=== PATIENT | female | born 1980 | race Two or more races ===

== ENCOUNTER 2024-10-12 18:40 | Emergency (ER) | payer OTHER, SELFPAY ==
--- OUTSIDE RECORDS SUMMARY | 2024-10-12 18:54 | XMS_ITS | Clinical Summary ---
Author Organization [facility] Healthcare Address [address] [place] [address] Care Team Providers Care Channel Cementer Name Role Phone [facility] Primary Care Provide r Azael Nur MD Unavailable [phone] Allergies Active Allergy Reactions Criticality Noted Date Comments Codeine Rash Low 05/09/2018 Other Reaction(s): Not available Latex Swelling 08/17/2023 Medications escitalopram (Lexapro) 10 MG tablet Active Methotrexate Sodium (methotrexate PF) 50 MG/2ML syringe 024 Active Xeljanz XR 11 MG tablet sustained-release 24 hour Active metroNIDAZOLE (Metrogel) 0.75 % gelIndications:Ot her rosacea Apply thin layer to face, once daily, 30 day supply 45 g 11 024 Active apremilast (Otezla) 10 & 20 & 30 MG tablet therapy pack tablet therapy pack 025 Active apremilast (Otezla) 30 MG tablet 025 Active ARIPiprazole (Abilify) 5 MG tablet Take 1 tablet by mouth Daily Active cyclobenzaprine (Flexeril) 10 MG tablet 024 Active hydroxychloroquin e (Plaquenil) 200 MG tablet Take 1 tablet by mouth Daily Active hydrOXYzine HCl (Atarax) 50 MG tablet every 6 (six) hours Active BD Insulin Syringe U/F 31G X 5/16 1 ML misc 024 Active ondansetron (Zofran) 8 MG tablet Take 8 mg by mouth every 8 (eight) hours if needed for nausea Active PARoxetine (Paxil) 20 MG tablet Take 20 mg by mouth in the morning. Active topiramate (Topamax) 25 MG tablet Active doxycycline (Monodox) 100 MG capsuleIndication s:Other rosacea Take 1 capsule, by mouth, once daily, 30 days 30 capsule 11 Active Additional Information Patient not taking.Reported on 09/19/2024 tretinoin (Retin-A) 0.025 % creamIndications: Acne vulgaris APPLY THIN LAYER (1 G)TO THE FACE ONCE DAILY IN THE EVENING/AT NIGHT TIME FOR 30 DAYS 45 g 11 Active Maxalt-CORNER FORMER [address] under the tongue Active busPIRone (Buspar) 5 MG tablet Take 1 tablet twice a day by oral route. 2024 Discontinued busPIRone (Buspar) 10 MG tablet Take 10 mg by mouth in the morning and 10 mg before bedtime. 2024 Discontinued lamoTRIgine (LaMICtal) 100 MG tablet Take 1 tablet by mouth Daily 2024 Discontinued QUEtiapine (SEROquel) 300 MG tablet Daily 2024 Discontinued Hospital, Clinic, or Other Facility Administered Medication Ordered Dose Route Frequency Start Date End Date Status betamethasone acetate-betamethasone sodium phosphate (Celestone) injection 6 mgIndications:Primary osteoarthritis of right wrist 6 mg IX Once PRN Procedure 09/19/2024 5 Ended betamethasone acetate-betamethasone sodium phosphate (Celestone) injection 3 mgIndications:Sprain of metacarpophalangeal (MCP) joint of right index finger, initial encounter 3 mg IX Once PRN Procedure 09/19/2024 5 Ended Active Problems No known active problems Encounters Date Type Department Care Team Description 09/19/2024 8:05 AM EDT Ancillary Procedure [facility] [address] [place] [address] 09/19/2024 8:00 AM EDT Ancillary Procedure [facility] [address] [phone] 09/19/2024 8:00 AM EDT Office Visit [facility] [address] [place] [address] Catrachtio Zavaleta PA Sprain of metacarpophalangeal (MCP) joint of right index finger, initial encounter (Primary Dx); Right wrist pain; Right elbow pain; Primary osteoarthritis of right wrist 09/19/2024 Travel from Last 3 Months Family History Medical History Relation Name Comments Cancer Father Lily Cancer Maternal Grandmother Mini Diabetes Mother's Brother Long Cancer Mother's Sister Ela Cancer Paternal Grandfather Pops Relation Name Status Comments Father Lily Alive Maternal Grandmother Mini Alive Mother's Brother Long Alive Mother's Sister Ela Alive Paternal Grandfather Pops Alive Social History Tobacco Use Types Packs/Day Years Used Date Smoking Tobacco: Unknown Tobacco Cessation:Counseling Given: Not Answered Comments Unknown Sex and Gender Information Value Date Recorded Sex Assigned at Female 08/16/2023 2:38 PM EDT Legal Sex Female 11:22 PM EDT Gender Identity Female 08/16/2023 2:38 PM EDT Sexual Orientation Not on file Last Filed Vital Signs Vital Sign Reading Time Taken Comments Blood Pressure 124/72 08/17/2023 1:27 PM EDT Pulse 70 08/17/2023 1:27 PM EDT Temperature - - Respiratory Rate - - Oxygen Saturation - - Inhaled Oxygen Concentration - - Weight 75.8 kg (167 lb) 09/19/2024 8:19 AM EDT Height 170.2 cm (5' 7 ) 09/19/2024 8:19 AM EDT Body Mass Index 26.16 09/19/2024 8:19 AM EDT Plan of Treatment Health Maintenance Due Date Last Done Comments Pap Smear 11/23/2000 Mammogram 03/12/2024 03/12/2023, 11/08/2020 Influenza Vaccine (Season Ended) 2025 04/05/20 15 Cervical Cancer Screening 08/13/2027 HPV/Cotest 08/13/2027 08/12/2022 Procedures Procedure Name Priority Date/Time Associated Diagnosis Comments [place] ARTHROCNT ASPIR&/INJ SMALL JT/EMILIAAW/US REC RPRT Routine 09/19/2024 9:02 AM EDT Sprain of metacarpophalangeal (MCP) joint of right index finger, initial encounter [place] ARTHROCENTESIS ASPIR&/INJ INTERM JT/BURS W/US Routine 09/19/2024 9:00 AM EDT Primary osteoarthritis of right wrist XR ELBOW 3+ VIEWS RIGHT Routine 09/19/2024 7:49 AM EDT Right elbow pain XR WRIST 3+ VIEWS RIGHT Routine 09/19/2024 7:49 AM EDT Right wrist pain from Last 3 Months Results * [place] ARTHROCNT ASPIR&/INJ SMALL JT/BURSAW/US REC RPRT (09/19/2024 9:02 AM EDT) Stephy Valle MA - 09/19/2024 9:02 AM EDT Stephy Whaley MA 09/19/2024 12:37 PM S Inj/Asp: R index MCP on 09/19/2024 9:02 AM Indications: pain Details: 25 G needle, ultrasound-guided Medications: 3 mg betamethasone acetate-betamethasone sodium phosphate 6 (3-3) MG/ML Procedure, treatment alternatives, risks and benefits explained, specific risks discussed. Consent was given by the patient. Immediately prior to procedure a time out was called to verify the correct patient, procedure, equipment, operations support analyst and site/side marked as required. Patient was prepped and draped in the usual sterile fashion. us Catrachito DE [facility]ZMAN IN CLINIC/BEDSIDE ORDERABLES Fin al Result * [place] ARTHROCENTESIS ASPIR&/INJ INTERM JT/BURS W/US (09/19/2024 9:00 AM EDT) Stephy Valle MA - 09/19/2024 9:00 AM EDT Stephy Whlaey MA 09/19/2024 12:37 PM M Inj/Asp: R radiocarpal on 09/19/2024 9:00 AM Indications: pain Details: 25 G needle, ultrasound-guided anterolateral approach Medications: 6 mg betamethasone acetate-betamethasone sodium phosphate 6 (3-3) MG/ML Procedure, treatment alternatives, risks and benefits explained, specific risks discussed. Consent was given by the patient. Immediately prior to procedure a time out was called to verify the correct patient, procedure, equipment, operations support analyst and site/side marked as required. Patient was prepped and draped in the usual sterile fashion. us Catrachito DE GUZMAN IN CLINIC/BEDSIDE ORDERABLES Fin al Result * XR elbow 3+ views right (09/19/2024 7:49 AM EDT) Anatomical Region Laterality Modality Upper Extremities, Elbow Right Radiogr aphic Imaging Narrative 09/19/2024 8:54 AM EDT Imaging Result: AP lateral oblique of the right elbow taken in the office today does not demonstrate any acute fracture evidence of significant osteoarthritis no evidence of bony tumor. us Catrachito DE GUZMAN IMG XR PROCEDURES Final Result * XR wrist 3+ views right (09/19/2024 7:49 AM EDT) Anatomical Region Laterality Modality Upper Extremities, Wrist Right Radiogr aphic Imaging Narrative 09/19/2024 8:53 AM EDT Imaging Result: AP lateral oblique of the right wrist taken in the office today does demonstrate some arthritic changes in the TTS to the distal scaphoid region but no apparent MCP deterioration or osteoarthritis seen. Early CMC degenerative changes with no significant subluxation. No evidence of fracture bony tumor seen. us Catrachito DE GUZMAN IMG XR PROCEDURES Final Result from Last 3 Months Insurance [facility] [place] Care Teams Channel Cementer Relationship Specialty [place] [address] [place] [address] [place] [address] PCP - General Behavioral Health 09/10/23 Azael Nur MD [address] [place] [id number] Referring Physician Family Medicine 09/19/24
--- OUTSIDE RECORDS SUMMARY | 2024-10-12 18:54 | XMS_ITS | Clinical Summary ---
Author Organization [facility] Address [address] [place] [address] Care Team Providers Care Engraver Hand Soft Metals Name Role Phone Praful Baker MD Unavailable [phone] None, Provided MD Primary Care Provider Unavaila ble Allergies Active Allergy Reactions Criticality Noted Date Comments Codeine Rash Low 05/09/2018 Latex Swelling 08/17/2023 Medications Medication Sig Dispensed Refills Start Date End Date Status sertraline (Zoloft) 50 mg tablet Take 50 mg by mouth in the morning. 01/22/2022 Active lamoTRIgine (LaMICtal) 100 mg tablet TAKE 1 TABLET BY MOUTH EVERY DAY IN THE MORNING 01/22/2022 Active hydrOXYzine pamoate (Vistaril) 50 mg capsule TAKE 1 CAPSULE BY MOUTH EVERY 12 HOURS NEEDED 10/06/2021 Active dexAMETHasone (Decadron) 4 mg tablet TAKE 1 TABLET(4MG) BY ORAL ROUTE DAILY 12/07/2021 Active busPIRone (Buspar) 10 mg tablet TAKE 1 TABLET ORALLY TWICE A DAY UPON AWAKING AND 5-6 PM. 30 10/06/2021 Active ARIPiprazole (Abilify) 5 mg tablet TAKE 1 TABLET BY MOUTH EVERYDAY AT BEDTIME 06/22/2022 Active cetirizine (ZyrTEC) 10 mg tablet 10 mg 1 (one) time each day. 06/22/2022 Active Flowflex COVID-19 Ag Home Test kit REFER TO CONCRETE STONE FINISHER INSTRUCTIONS INCLUDED IN PACKAGING 06/22/2022 Active metroNIDAZOLE (Flagyl) 500 mg tablet TAKE 1 TABLET BY MOUTH TWICE DAILY FOR 7 DAYS (MORNING AND BEFORE BEDTIME) NO ALCOHOL WHILE TAKING THIS MED 08/13/2022 Active valACYclovir (Valtrex) 1 gram tablet TAKE 1/2 (ONE-HALF) TABLET BY MOUTH TWICE DAILY FOR 10 DAYS (MORNING AND BEFORE BEDTIME) 08/12/2022 Active hydrOXYzine HCL (Atarax) 50 mg tablet every 6 (six) hours. Active ketorolac (Acular) 0.5 % ophthalmic solution INSTILL 1 DROP INTO LEFT EYE EVERY 3 HOURS 10/18/2022 Active QUEtiapine (SEROquel) 300 mg tablet in the morning. Active methotrexate (MTX) 25 mg/mLIndications:Ar thropathic psoriasis, unspecified (CMS/HCC) INJECT 0.5 ML ONCE WEEKLY DIRECTED 2 mL 3 11/04/2022 Active methotrexate 25 mg/mL injectionIndication s:Psoriatic arthropathy (CMS/HCC) Inject 0.5 mL (12.5 mg) into the shoulder, thigh, or buttocks 1 (one) time per week. 2 mL 6 07/08/2023 Active folic acid (Folvite) 1 mg tabletIndications:P soriatic arthropathy (CMS/HCC),assisted methotrexate user Take 1 tablet (1,000 mcg) by mouth in the morning. 90 tablet 3 08/17/2023 Active insulin syringe-needle U-100 (BD Insulin Syringe) 1 mL 27 gauge x 1/2 syringeIndications: Psoriatic arthropathy (CMS/HCC),oil heaterman methotrexate user 1 mL 1 (one) time per week. For Methotrexate subcutaneous administration. 60 each 3 08/17/2023 Active tofacitinib ER (Xeljanz XR) 11 mg tablet extended release 24 hrIndications:Arthr opathic psoriasis, unspecified (CMS/HCC) Take 1 tablet (11 mg) by mouth in the morning. Do not crush, chew or split. Swallow whole. 30 tablet 11 12/28/2023 Active Additional Information Patient not taking.Reported on 06/19/2024 cyclobenzaprine (Flexeril) 10 mg tablet TAKE 1 TABLET BY MOUTH EVERY 12 HOURS NEEDED FOR MUSCLE SPASM 10/18/2023 Active ondansetron (Zofran) 8 mg tabletIndications:N ausea Take one tab PO every 8 hours as needed for nausea 90 tablet 3 06/19/2024 Active apremilast (Otezla Starter) 10 mg (4)-20 mg (4)-30 mg (47) tablets,dose pack tablet therapy packIndications:Pso riatic arthropathy (CMS/HCC) Take as directed 55 each 06/20/2024 Active apremilast (Otezla) 30 mg tabletIndications:P soriatic arthropathy (CMS/HCC) One tab PO twice daily 60 tablet 11 06/20/2024 Active Active Problems Problem Noted Date Diagnosed Date oil heaterman methotrexate user 08/18/2023 Acute pain of right wrist 08/18/2023 Psoriatic arthropathy 07/09/2023 Hyperlipidemia 07/09/2023 High risk medication use 07/09/2023 Encounter for screening for other viral diseases 07/09/2023 Screening-pulmonary TB 07/09/2023 Sacrococcygeal disorders, not elsewhere classifi ed 10/01/2022 Trochanteric bursitis of right hip 10/01/2022 Allergic rhinitis 09/14/2022 Amenorrhea 09/14/2022 Gastro-esophageal reflux disease with esophagiti s 09/14/2022 Irregular periods 09/14/2022 Joint pain 09/14/2022 Nausea and vomiting 09/14/2022 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 Family History Medical History Relation Name Comments Anxiety disorder Father Dad Cancer Father Dad Depression Father Dad Heart disease Father Dad Hyperlipidemia Father Dad Hypertension Father Dad Kidney disease Father Dad Stroke Father Dad Alcohol abuse Maternal Grandfather Pops Cancer Maternal Grandfather Pops Cancer Maternal Grandmother Moms Kidney disease Maternal Grandmother Moms Diabetes Mother's Brother 1 Long Mental illness Mother's Brother 2 Bry Learning disabilities Mother's Sister Ela Heart disease Paternal Grandfather Chris Stroke Paternal Grandfather Chris Stroke Paternal Grandmother Cesar Intellectual Disability Sister Micah Intellectual Disability Son Pedro Pablo Relation Name Status Comments Father Dad Maternal Grandfather Pops Maternal Grandmother Moms Mother's Brother 1 Long Mother's Brother 2 Bry Mother's Sister Ela Paternal Grandfather Chris Paternal Grandmother Cesar Sister Micah Son Pedro Pablo Social History Tobacco Use Types Packs/Day Years Used Date Smoking Tobacco: Never Smokeless Tobacco: Never Tobacco Cessation:Counseling Given: Not Answered Alcohol Use Standard Drinks/Week Comments Yes 0 (1 standard drink = 0.6 oz pur e alcohol) PHQ-2 Answer Date Recorded Patient Health Questionnaire-2 Score 0 06/19/2024 [place] Safety & Environment Answer Date Rec orded Fear of Current or Ex-Partner Not on file Emotionally Abused Not on file 07/15/2023 Physically Abused Not on file 07/15/2023 Sexually Abused Not on file 07/15/2023 Physically or Sexually Abused Not on file Sex and Gender Information Value Date Recorded Sex Assigned at Not on file Gender Identity Not on file Sexual Orientation Not on file Last Filed Vital Signs Vital Sign Reading Time Taken Comments Blood Pressure 112/77 06/19/2024 10:47 AM EST Pulse 78 06/19/2024 10:47 AM EST Temperature - - Respiratory Rate 14 10/01/2022 10:18 AM EDT Oxygen Saturation 100% 10/01/2022 10:18 AM EDT Inhaled Oxygen Concentration - - Weight 88 kg (194 lb) 06/19/2024 10:47 AM EST Height 170.2 cm (5' 7 ) 06/19/2024 10:47 AM EST Body Mass Index 30.38 06/19/2024 10:47 AM EST Plan of Treatment Health Maintenance Due Date Last Done Comments Pap Smear 11/23/2000 Cervical Cancer Screening 11/23/2009 HPV/Cotest 11/23/2009 Hepatitis B Vaccines (2 of 3 - 19+ 3-dose series) 07/28/2018 06/30/2018 COVID-19 Vaccine ( - 2023-2 5 season) 2024 Influenza Vaccine (Season Ended) 2025 04/05/20 15 Mammogram 03/12/2025 03/12/2023 Depression Screening 06/19/2025 06/19/2024 Adult Tetanus 09/15/2025 09/16/2015 Zoster Vaccines (1 of 2) 11/23/2029 HIB Vaccines Aged Out No longer eligi ble based on patient's age to complete this topic HPV Vaccines Aged Out No longer eligi ble based on patient's age to complete this topic IPV Vaccines Aged Out No longer eligi ble based on patient's age to complete this topic Meningococcal B Vaccine Aged Out No l onger eligible based on patient's age to complete this topic Meningococcal Vaccine Aged Out No micah landen eligible based on patient's age to complete this topic Pneumococcal Vaccine: Pediat rics (0 to 5 Years) and At-Risk Patients (6 to 64 Years) Aged Out No longer eligi ble based on patient's age to complete this topic Rotavirus Vaccines Aged Out No longer eligible based on patient's age to complete this topic Care Teams Engraver Hand Soft Metals Relationship Specialty Start Date End Date None, Provided, PCP - General 10/01/22 Praful Baker MD [address] [place] [id number] Referring Physician Rheumatology 10/01/22 Naren Sharpe Primary Care Provider Internal Medicine 10/01/22
--- OUTSIDE RECORDS SUMMARY | 2024-10-12 18:54 | XMS_ITS | Encounter Summary ---
Author Organization [facility] Address [address] [place] [address] Care Team Providers Care Cigarette Packer Name Role Phone Praful Baker MD Unavailable [phone] None, Provided MD Primary Care Provider Unavaila ble Reason for Visit * Reason Comments Med Change Request Encounter Details Date Type Department Care Team (Late st Contact Info) Description 11/03/2022 Refill [facility] Rheumatology [address] [place] [address] Randy Urbano MD [address] [place] [address] Arthropathic psoriasis, unspecified (CMS/HCC) Social History Tobacco Use Types Packs/Day Years Used Date Smoking Tobacco: Never Smokeless Tobacco: Never Alcohol Use Standard Drinks/Week Comments Yes 0 (1 standard drink = 0.6 oz pur e alcohol) PHQ-2 Answer Date Recorded Patient Health Questionnaire-2 Score 0 10/26/2022 Sex and Gender Information Value Date Recorded Sex Assigned at Not on file Gender Identity Not on file Sexual Orientation Not on file COVID-19 Exposure Response Date Recorded In the last 10 days, have yo u been in contact with someone who was confirmed or suspected to have Coronavirus/COVID-19? No / Unsure 10/26/2022 1:25 PM EDT documented as of this encounter Miscellaneous Notes * Telephone Encounter - Ivana Gan MA - 11/03/2022 12:33 PM EDT [facility] patient documented in this encounter Plan of Treatment Not on file documented as of this encounter Visit Diagnoses Diagnosis Arthropathic psoriasis, unspecified (CMS/HCC) documented in this encounter Care Teams Cigarette Packer Relationship Specialty Start Date End Date None, Provided, MD PCP - General 10/01/22 Praful Baker MD [address] [place] [id number] Referring Physician Rheumatology 10/01/22 Naren Sharpe Primary Care Provider Internal Medicine 10/01/22 documented as of this encounter
--- OUTSIDE RECORDS SUMMARY | 2024-10-12 18:54 | XMS_ITS | Encounter Summary ---
Author Organization [facility] Address [address] [place] [address] Care Team Providers Care Hospitality Specialist Name Role Phone Praful Baker MD Unavailable [phone] None, Provided Primary Care Provider Unavaila ble Reason for Visit * Reason Comments Med Change Request Encounter Details Date Type Department Care Team (Late st Contact Info) Description 10/30/2022 Refill [facility] Rheumatology [address] [place] [address] Randy Urbano MD [address] [place] [address] Arthropathic psoriasis, unspecified (CMS/HCC) Social [...] PM EDT documented as of this encounter Plan of Treatment Not on file documented as of this encounter Visit Diagnoses Diagnosis Arthropathic psoriasis, unspecified (CMS/HCC) documented in this encounter Care Teams Hospitality Specialist Relationship Specialty Start Date End Date None, MD Graciela PCP - General 10/01/22 Praful Baker MD [address] [place] [phone] Referring Physician Rheumatology 10/01/22 Naren Sharpe Primary Care Provider Internal Medicine 10/01/22 documented as of this encounter
--- OUTSIDE RECORDS SUMMARY | 2024-10-12 18:54 | XMS_ITS | Referral Summary ---
Author Organization [facility] Address [address] [place] [address] Care Team Providers Care Ammonium Sulfate Operator Name Role Phone Praful Baker MD Unavailable [phone] None, Provided MD Primary Care Provider Unavaila [...] COVID-19 Ag Home Test kit REFER TO FORGE HAND INSTRUCTIONS INCLUDED IN PACKAGING 06/22/2022 Active metroNIDAZOLE [...] acid (Folvite) 1 mg tabletIndications:P soriatic arthropathy (CMS/HCC),residential methotrexate user Take 1 tablet (1,000 mcg) by mouth in the morning. 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 Social History Tobacco Use Types Packs/Day Years Used Date Smoking Tobacco: Never Smokeless Tobacco: Never Tobacco Cessation:Counseling Given: Not Answered Alcohol Use Standard Drinks/Week Comments Yes 0 (1 standard drink = 0.6 oz pur e alcohol) PHQ-2 Answer Date Recorded Patient Health Questionnaire-2 Score 0 06/19/2024 [place] Safety & Environment Answer Date Rec orded [...] 06/19/2024 10:47 AM EST Plan of Treatment Not on file Care Teams Ammonium Sulfate Operator Relationship Specialty Start Date End Date None, Provided, PCP - General 10/01/22 Praful Baker MD [address] [place] [address] Referring Physician Rheumatology 10/01/22 Naren Sharpe Primary Care Provider Internal Medicine 10/01/22
[2024-10-12 18:59] VITALS: BP 119/87; PULSE 77; TEMP 36.6; O2SAT 98; BMI 25.1
[2024-10-12 19:09] LABS: Glucometer 90 mg/dL (74-106)
--- NOTE | 2024-10-12 19:12 | US_ITS ---
[facility] [place] [id number] Patient Name: DAVEY GOTTLIEB MRN: [id number] date: 1980 Sex: F Assigned Patient Location: ER Current Patient Location: ER Accession/Order Number: [id number] Exam Date: 10/12/2024 20:32 Report Date: 10/12/2024 20:33 At the request of: RADHA VERMA MD Procedure: US venous doppler LE LT Venous Doppler ultrasound of the left lower extremity HISTORY: Left lower extremity swelling for 4 days No DVT seen. Normal compressibility. Normal venous waveform. US/US venous doppler LE LT IMPRESSION: No DVT of the left lower extremity. Impression dictated by: Will Husain M.D. 10/12/2024 8:33 PM Dictation Location: [place] [address] Electronically authenticated by: [id number] Y Date: 10/12/2024 20:33
--- NOTE | 2024-10-12 21:36 | ED.EXTPRO1 ---
HPI - Extremity Problem General Chief complaint: Extremity Problem, Nontraumatic Stated complaint: Lower Pain Time Seen by Provider: 10/12/24 21:31 Source: patient Mode of arrival: walk-in Limitations: no limitations History of Present Illness HPI Narrative: This 43-year-old female with a history of rheumatoid arthritis presents for evaluation of left anterior leg pain. She has pain and burning sensation in the left anterior lower leg. She denies any injury. The pain started on Wednesday. She has no numbness or tingling. She has not taken any medication for her symptoms. She denies any chest pain or shortness of breath. She does not smoke. She is not on control. She is concerned that she may have a blood clot in her leg. Related Data Home Medications ?Medication ?Instructions ?Recorded ?Confirmed cyclobenzaprine 10 mg tablet 10 mg PO Q8H PRN muscle spasm 10/12/24 10/12/24 rizatriptan 10 mg disintegrating 10 mg PO Q2H PRN migraine headache 10/12/24 10/12/24 tablet Allergies Allergy/AdvReac Type Severity Reaction Status Date / Time codeine Allergy Rash Verified 10/12/24 18:56 Review of Systems ROS Status of ROS 10 or more systems reviewed and unremarkable except as noted in history and below [facility] Medical History (Updated 10/12/24 @ 21:39 by Ania Chance MD) Rheumatoid arthritis in remission ?M06.9 - Rheumatoid arthritis, unspecified (ICD-10) Social History Little interest or pleasure in doing things: not at all Feeling down, depressed, or hopeless: not at all Exam Narrative Exam Narrative: Vital signs and Nursing Notes reviewed: Patient is afebrile with a normal pulse, blood pressure is elevated 119/87, she is not hypoxic with pulse ox of 98% on room air General: Awake, alert, oriented, no acute distress, lying comfortably on the stretcher HEENT: Normocephalic atraumatic, mucous membranes are moist and pink, eyes are clear, normal conjunctiva, vision is grossly intact Chest: Lungs are clear to auscultation with good air entry, there is no wheezing rhonchi or rales appreciated no accessory muscle use, patient is speaking in complete sentences-no chest wall tenderness to palpation CVS: Regular rate and rhythm S1-S2, no murmurs rubs or gallops, pulses are brisk and equal bilaterally Extremities: Moving all extremities, mild tenderness to the anterior lower tibial area of the left leg. There is no redness bruising or other notable abnormality. There is no calf tenderness or swelling. Foot is warm and sensate with normal pulses Skin: Normal in appearance without rash,pallor, petechiae or purpura Neuro: No focal deficits Constitutional Vital Signs, click to edit/add: Last Vital Signs Temp 97.8 F 10/12/24 18:59 Pulse 77 10/12/24 18:59 Resp 16 10/12/24 18:59 BP 119/87 10/12/24 18:59 Pulse Ox 98 10/12/24 18:59 O2 Del Method Room Air 10/12/24 18:59 Course Vital Signs Vital signs: Vital Signs Temperature 97.8 F 10/12/24 18:59 Pulse Rate 77 10/12/24 18:59 Respiratory Rate 16 10/12/24 18:59 Blood Pressure 119/87 10/12/24 18:59 Pulse Oximetry 98 10/12/24 18:59 Oxygen Delivery Method Room Air 10/12/24 18:59 Temperature 97.8 F 10/12/24 18:59 Pulse Rate 77 10/12/24 18:59 Respiratory Rate 16 10/12/24 18:59 Blood Pressure 119/87 10/12/24 18:59 Pulse Oximetry 98 10/12/24 18:59 Oxygen Delivery Method Room Air 10/12/24 18:59 MDM - Extremity (Nontraumatic) MDM Narrative Medical decision making narrative: This 43 female history of rheumatoid arthritis presents for evaluation of pain in her left anterior lower leg since Wednesday. She is concerned that she has a blood clot. She states that even light touch causes her pain. She has not had any injury. There is no redness or swelling noted. [facility] and is negative for DVT. Her physical exam is benign. Feet are warm and sensate. Pulses are brisk and equal. She was medicated with a dose of ibuprofen. The results of the ultrasound were discussed with her and she feels comfortable being discharged home. I explained to her that clinically it looks like she has shinsplints. 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 She will be discharged home with a prescription for ibuprofen with recommendation for ice, gentle stretching and anti-inflammatories for pain. Lab Data Labs: Lab Results 10/12/24 Range/Units 19:07 POC Glucose 90 (74-106) mg/dL Discharge Plan Discharge Chief Complaint: Extremity Problem, Nontraumatic Clinical Impression: Lower extremity pain, left Patient Disposition: Home, Self-Care Time of Disposition Decision: 21:39 Condition: Good Prescriptions / Home Meds: No Action cyclobenzaprine 10 mg tablet 10 mg PO Q8H PRN (Reason: muscle spasm) rizatriptan 10 mg tablet,disintegrating 10 mg PO Q2H PRN (Reason: migraine headache) Print Language: Turkmen Instructions: Leg Pain (ED) Referrals: Azael Nur NP [Primary Care Provider] - 1 week
[2024-10-12] MEDS: IBUPROFEN 600 MG TABLET PO (21:49)
--- NOTE | 2024-10-12 21:53 | PC.NURSE ---
complains of left lower (anterior) leg pain onset 1 day ago. this patient denies any recent injury or falls or trauma to cause this left lower leg pain. this left lower pain shows no visible edema, or discoloration at this time
--- NOTE | 2024-10-12 21:57 | PC.NURSE ---
i gave this patient verbal and paper discharge along with 1 Rx and this patient voices yes to understanding these. at time of discharge this patient voices no concerns and shows no signs of distress
== END 2024-10-12 21:56 | disposition home or self-care (01) ==
PROVIDERS: Emergency Medicine; Emergency Provider Emergency Medicine; PCP Nurse Practitioner Family
DX: M79.605 Pain in left leg (principal); M06.9 Rheumatoid arthritis, unspecified
CPT/HCPCS: 36415; 82948; 93971; 99284